=== PATIENT | female | born 1960 | race Caucasian/White ===

== ENCOUNTER 2020-08-31 00:45 | Outpatient (CLI) | payer OTHER, SELFPAY ==
[2020-08-31 18:12] LABS: SARS-CoV-2 RNA PCR Negative
== END 2020-08-31 00:46 | disposition home or self-care (01) ==
LOC: ANHCOVIDDT 00:45
PROVIDERS: PCP Physician Assistant; Visit Provider Internal Medicine Gastroenterology
DX: Z01.812 Encounter for preprocedural laboratory examination (principal); Z20.828 Contact with and (suspected) exposure to other viral communicable diseases
CPT/HCPCS: 87635; C9803; U0003

== ENCOUNTER 2020-09-02 02:23 | Day surgery (SDC) | payer OTHER, SELFPAY ==
[2020-08-27 11:05] VITALS: BMI 31.8
--- NOTE | 2020-09-02 08:17 | P.PNAN_ITS ---
Anes - Initial Pre Proc Eval Procedure: Operation Date: 09/02/20 09:00 Proposed Procedures p Esophagogastroduodenoscopy - Navi Sawyer MD Date/Time: 09/02/20 08:17 Surgeon: Navi Sawyer MD Pre Op Diagnosis: Abnormal CT Scan Patient Data Age: 59 Gender: F Height: 1.61 m Weight: 83 kg Allergies Allergy/AdvReac Type Severity Reaction Status Date / Time No Known Allergies Allergy Verified 09/02/20 08:28 Home Medications Medication Instructions Recorded Confirmed Type hydrochlorothiazide 25 mg tablet 25 mg PO DAILY 02/05/20 08/27/20 History quinapril 40 mg tablet 40 mg PO DAILY 02/05/20 08/27/20 History rrzkiki-qrxwhptts-ajob 1 tab-cap PO DAILY 08/27/20 08/27/20 History ergocalciferol (vitamin D2) 50,000 unit PO WEEKLY 08/27/20 08/27/20 History [Vitamin D2] montelukast 10 mg PO DAILY 08/27/20 08/27/20 History rosuvastatin 5 mg PO DAILY 08/27/20 08/27/20 History Patient hx anesthesia problems: none Family hx anesthesia problems: none [facility] Past Medical History Medical History (Updated 09/01/20 @ 14:42 by Ethan Quiroz DO) Anxiety Borderline diabetes Diabetes 6mo A1C=6.5 Factor V Leiden Hyperlipidemia Hypertension Osteoarthritis Surgical History Surgical History History of section 05-04-1984 01-05-1990 Social History Social History Smoking status: Never smoker Alcohol intake: current Drinks per week: 1 Alcohol use details: WINE/BEER Substance use: never Substance use type: does not use Additional living arrangements comments: Additional occupation/education comments: Self Employed Spiritual care concerns: No Anes - Eval Final PreProcedure Day of Procedure 09/02/20 08:17 Patient weight: obese Heart: regular rate and rhythm Lungs: clear to auscultation and normal air movement Airway: Mallampati scale class II Neurological: alert and oriented Last oral intake: >/= 8 hours ASA classification: III Emergent: no Anesthetic plan: proceed Anesthesia type and monitoring: general GIVS and standard monitoring Informed Consent: The patient's anesthetic plan and its attendant risks and benefits were discussed with the patient/family/POA. Questions were solicited and answers provided to the satisfaction of the patient/family/POA.
[2020-09-02 08:29] VITALS: BP 171/64; PULSE 79; RESP 16; TEMP 36.5; O2SAT 100; BMI 32.2
--- NOTE | 2020-09-02 08:49 | PM.HPGS ---
History of Present Illness History of Present Illness Consent: Risks, benefits, and alternatives have been discussed and questions answered. Patient agrees to proceed with procedure. Chief complaint: Abnormal CT Scan Narrative: Trisha Deng is a 59 year old female with epigastric pain. A recent CT scan showed thickening of the 3rd portion of the duodenum. She has had no weight loss or vomiting. She does use Aleve for osteoarthritis PMFSH Past Medical History Medical History Anxiety Borderline diabetes Diabetes 6mo A1C=6.5 Factor V Leiden Hyperlipidemia Hypertension Osteoarthritis Surgical History Surgical History History of section 05-04-1984 01-05-1990 Family History Family History Mother Diabetes mellitus Family history of hypercholesterolemia Hypertension Father Family history of hypercholesterolemia Hypertension Family history of pancreatic cancer Heart disease Grandparent Family history of malignant neoplasm of uterus Sibling Family history of malignant neoplasm of breast in first degree relative Social History Social History Smoking status: Never smoker Alcohol intake: current Drinks per week: 1 Alcohol use details: WINE/BEER Substance use: never Substance use type: does not use Additional living arrangements comments: Additional occupation/education comments: Self Employed Spiritual care concerns: No Meds Home Medications and Allergies Home Medications Medication Instructions Recorded Confirmed Type hydrochlorothiazide 25 mg tablet 25 mg PO DAILY 02/05/20 08/27/20 History quinapril 40 mg tablet 40 mg PO DAILY 02/05/20 08/27/20 History dwlsdnv-ypcwgggpa-vasn 1 tab-cap PO DAILY 08/27/20 08/27/20 History ergocalciferol (vitamin D2) 50,000 unit PO WEEKLY 08/27/20 08/27/20 History [Vitamin D2] montelukast 10 mg PO DAILY 08/27/20 08/27/20 History rosuvastatin 5 mg PO DAILY 08/27/20 08/27/20 History Allergies Allergy/AdvReac Type Severity Reaction Status Date / Time No Known Allergies Allergy Verified 09/02/20 08:28 Vital Signs Vital Signs - 24 hr 09/02/20 08:29 Temperature 36.5 C Pulse Rate 79 Respiratory Rate 16 Blood Pressure 171/64 H Pulse Oximetry 100 Exam Const: General: alert Orientation/consciousness: patient oriented x3 Resp: Auscultation: clear to auscultation bilaterally Cardio: Rhythm: regular rhythm GI: GI Palp: Yes Soft to palpation and No Tenderness to palpation present (GI) Neuro: General: patient oriented x3 Assessment and Plan Assessment and plan (1) Epigastric pain: Code(s): R10.13 - Epigastric pain Status: Acute Assessment and Plan: EGD with possible biopsy or dilatation or cautery.
[2020-09-02] MEDS: LACTATED RINGERS 1,000 ML 150 ML IV CONT (09:01)
[2020-09-02] MEDS: BENZOCAINE (*SP) 60 ML SPRAY CAN (HURRICAINE) 1 SPRAY MUCOUS MEM (09:17)
[2020-09-02 09:30] VITALS: BP 101/62; PULSE 64; RESP 20; O2SAT 97
[2020-09-02 09:40] VITALS: BP 107/54; PULSE 71; RESP 20; O2SAT 99
[2020-09-02 09:50] VITALS: BP 108/80; PULSE 61; RESP 13; O2SAT 100
== END 2020-09-02 10:08 | disposition home or self-care (01) ==
PROVIDERS: PCP Physician Assistant; Visit Provider Internal Medicine Gastroenterology
PROC: 0DJ08ZZ Inspection of Upper Intestinal Tract, Via Natural or Artificial Opening Endoscopic (ICD-10-PCS; CPT 43235; principal; 2020-09-02 09:00)
DX: K21.9 Gastro-esophageal reflux disease without esophagitis (principal); F41.9 Anxiety disorder, unspecified; D68.51 Activated protein C resistance; E78.5 Hyperlipidemia, unspecified; R73.03 Prediabetes; I10 Essential (primary) hypertension; E66.9 Obesity, unspecified; Z68.32 Body mass index [BMI] 32.0-32.9, adult
CPT/HCPCS: 43239; 87081; J2704; J7120

== ENCOUNTER → 2020-11-12 13:16 | Outpatient (CLI) | payer OTHER, SELFPAY ==
--- NOTE | ~2020-11-12 | MM_ITS ---
EXAMINATION: MM screening [facility] BI w leeann HISTORY: Screening mammogram TECHNIQUE: Craniocaudal and mediolateral oblique 3-D tomosynthesis images were obtained and synthetic 2-D images were generated. CAD analysis was submitted and interpreted. COMPARISON: 03/02/2019, 01/27/2018, 12/20/2016 BREAST PARENCHYMAL COMPOSITION: The breasts are almost entirely fatty. FINDINGS: There is no evidence of suspicious mass, calcification, or architectural distortion to sugg est malignancy in either breast. There has been no suspicious interval change. IMPRESSION: 1. No mammographic evidence of malignancy. 2. Recommend routine screening mammography in one year. BI-RADS Category 1: Negative Reviewed, dictated and finalized at location A. T VENDOR
--- NOTE | ~2020-11-12 | DEXA_ITS ---
Bone Density Report Name: Trisha Deng Age: 59 Sex: Female Ethnicity: White Date of : 1960 Indication: postmenopausal; screening for osteoporosis; height loss; Referring Provider: VAIBHAV CALDERON Study: Bone densitometry was performed. Exam Date: November 12, 2020 Accession number: [id number] Bone Density: Region BMD T-score Z-score Classification AP Spine (L1-L4) 1.300 2.3 3.8 Normal Femoral Neck (Left) 0.982 1.2 2.5 Normal Total Hip (Left) 1.238 2.4 3.4 Normal Femoral Neck (Right) 1.009 1.4 2.8 Normal Total Hip (Right) 1.189 2.0 3.0 Normal Total Hip Mean 1.214 2.2 3.2 Normal World Health Organization criteria for BMD impression classify patients as: Normal (T-score at or above -1.0), Osteopenia (T-score between -1.0 and -2.5), or Osteoporosis (T-score at or below -2.5). 10-year Fracture Risk: FRAX not reported because: All T-scores for Spine Total, Hip Total, Femoral Neck at or above -1.0 Previous Exams: Region Exam Age BMD T-score BMD Change BMD Change Date g/cm2 vs Baseline vs Previous AP Spine(L1-L4) 11/12/2020 59 1.300 2.3 -0.056* -0.038* 01/27/2018 57 1.337 2.6 -0.018 0.045* 09/01/2015 54 1.292 2.2 -0.063* -0.063* 02/09/2013 52 1.355 2.8 Total Hip(Left) 11/12/2020 59 1.238 2.4 -0.097* -0.035* 01/27/2018 57 1.273 2.7 -0.062* -0.037* 09/01/2015 54 1.310 3.0 -0.024 -0.024 02/09/2013 52 1.335 3.2 Total Hip(Right) 11/12/2020 59 1.189 2.0 -0.101* -0.087* 01/27/2018 57 1.276 2.7 -0.014 -0.008 09/01/2015 54 1.283 2.8 -0.006 -0.006 02/09/2013 52 1.290 2.8 *Denotes significance at 95% confidence level, LSC for AP Spine = 0.022 g/cm2, LSC for Total Hip = 0.027 g/cm2 Clinical Information Provided by Patient: Has used the following medications: Vitamin D, MTV that includes calcium Patient maximum height was 64 Menopause Age: 49 No regular weight bearing exercise Drinks caffeinated beverages Onset of menses at age 11 Number of children 2 Impression: The patient has normal bone mass. The BMD for the AP Spine(L1-L4) decreased, changing by -0.038 since the last DXA exam. The BMD for the Total Hip(Left) decreased, changing by -0.035 since the last DXA exam. The BMD for the Total Hip(Right) decreased, changing by -0
== END ==
PROVIDERS: PCP Physician Assistant; Visit Provider Obstetrics & Gynecology
DX: Z12.31 Encounter for screening mammogram for malignant neoplasm of breast (principal); Z78.0 Asymptomatic menopausal state
CPT/HCPCS: 77063; 77067; 77080

== ENCOUNTER 2021-05-19 07:54 | Outpatient (CLI) | payer OTHER, SELFPAY ==
[2021-05-19 09:44] LABS: Basophils Percent Auto 0.6 % (0.2-1.2); Eosinophils Absolute Auto 0.1 K/mm3 (0-0.3); Eosinophils Percent Auto 2.3 % (0-4.4); Hematocrit 43.9 % (37.0-47.0); Hemoglobin 14.2 g/dL (12.0-15.0); Immature Granulocyte Absolute 0.01 K/mm3 (0.00-0.031); Immature Granulocyte Percent A 0.2 % (0-0.5); Lymphocytes Absolute Auto 1.89 K/mm3 (0.9-3.2); Lymphocytes Percent Auto 36.7 % (18.3-44.2); Mean Corpuscular HGB Conc 32.3 g/dl (32-36); Mean Corpuscular Hemoglobin 29.2 pg (26-34); Mean Corpuscular Volume 90.1 fl (80-100); Monocytes Absolute Auto 0.4 K/mm3 (0.1-0.6); Monocytes Percent Auto 7.6 % (2.6-8.5); Neutrophils Absolute Auto 2.7 K/mm3 (1.3-6.7); Neutrophils Percent Auto 52.6 % (45.5-73.1); Platelet Count Result 349 k/mm3 (150-375); Red Blood Count 4.87 M/mm3 (4.2-5.4); Red Cell Distribution Width 12.8 % (11.5-14.5); White Blood Count 5.2 K/mm3 (4.5-10.0)
[2021-05-19 09:46] LABS: Add Urine Microscopic? NO; Appearance Urine Clear (Clear); Bilirubin Urine Negative (Negative); Blood Urine Negative (Negative); Color Urine Straw (Yellow); Glucose Urine UA Negative (Negative); Ketones Urine Negative (Negative); Leukocyte Esterase Ur Negative LEU/UL (Negative); Nitrate Urine Negative (Negative); Protein Urine Negative (Negative); Specific Grav Ur 1.014 (1.001-1.035); Urobilinogen Urine Negative mg/dL (<2.0)
[2021-05-19 09:51] LABS: Urine Cotinine NEGATIVE
[2021-05-19 09:52] LABS: Albumin Level 4.5 g/dL (3.5-5.1)
[2021-05-19 09:59] LABS: Anion Gap 7 mmol/L (8-16); Blood Urea Nitrogen 16 mg/dL (7-17); Calcium 10.1 mg/dL (8.4-10.2); Carbon Dioxide 32 mmol/L (22-30); Chloride 101 mmol/L (98-107); Estimated Glomerular Filt Rate > 60; Glucose 114 mg/dL (65-105); Potassium 4.4 mmol/L (3.4-5.0); Sodium 140 mmol/L (137-145)
[2021-05-19 10:08] LABS: Hemoglobin A1C 6.4 % (<5.7)
== END 2021-05-19 07:55 | disposition home or self-care (01) ==
LOC: ANHSURGERY 07:58
PROVIDERS: Anesthesiology; PCP Physician Assistant; Visit Provider Orthopaedic Surgery
DX: M17.11 Unilateral primary osteoarthritis, right knee (principal); Z79.899 Other long term (current) drug therapy; Z01.818 Encounter for other preprocedural examination
CPT/HCPCS: 36415; 80048; 80307; 81003; 82040; 83036; 85025; 87081

== ENCOUNTER 2021-06-14 01:01 | Day surgery (SDC) | payer OTHER, SELFPAY ==
[2021-05-19 08:42] VITALS: BMI 33.5
--- NOTE | 2021-06-13 11:23 | WPDANESEPPF ---
Anes - Initial Pre Proc Eval Procedure: Operation Date: 06/14/21 07:30 Proposed Procedures p Right Total Knee Arthroplasty - Jaden Demarco MD Date/Time: 06/13/21 11:23 Surgeon: Jaden Demarco MD Pre Op Diagnosis: Right Knee OA Patient Data Age: 60 Gender: F Height: 1.6 m Weight: 85.9 kg Allergies Allergy/AdvReac Type Severity Reaction Status Date / Time No Known Allergies Allergy Verified 05/19/21 08:33 Home Medications Medication Instructions Recorded Confirmed Type hydrochlorothiazide 25 mg tablet 25 mg PO QAM 02/05/20 06/08/21 History quinapril 40 mg tablet 40 mg PO QAM 02/05/20 06/08/21 History ergocalciferol (vitamin D2) 50,000 unit PO WEEKLY 08/27/20 06/08/21 History [Vitamin D2] montelukast 10 mg PO HS PRN 08/27/20 06/08/21 History metoprolol succinate 50 mg 50 mg PO HS 01/26/21 06/08/21 History tablet,extended release 24 hr acetaminophen [Tylenol Arthritis] 1,300 mg PO Q8H PRN 05/19/21 06/08/21 History cetirizine [Zyrtec] 10 mg PO DAILY PRN 05/19/21 06/08/21 History mv,iron,min-folic acid-biotin 1 cap PO QAM 05/19/21 06/08/21 History [Hair, Skin and Nails-Argan Oil] rivaroxaban 10 mg tablet 10 mg PO DAILY PRN #42 tablet 06/08/21 Rx Patient hx anesthesia problems: none Family hx anesthesia problems: none PMFSH Past Medical History Medical History (Updated 06/13/21 @ 11:23 by Philippe Mar MD) Anxiety BMI 32.0-32.9,adult Borderline diabetes Diabetes 6mo A1C=6.5 Factor V Leiden GERD (gastroesophageal reflux disease) Hyperlipidemia Hypertension Obesity Osteoarthritis Osteoarthritis of right knee Surgical History Surgical History History of section 05-04-1984 01-05-1990 History of esophagogastroduodenoscopy (EGD) Family History Family History Mother Diabetes mellitus Family history of hypercholesterolemia Hypertension Father Family history of hypercholesterolemia Hypertension Family history of pancreatic cancer Heart disease Grandparent Family history of malignant neoplasm of uterus Sibling Family history of malignant neoplasm of breast in first degree relative Social History Social History Smoking status: Never smoker Second hand tobacco smoke exposure: No Alcohol intake: current Drinks per week: 1 Alcohol use details: STATES MAYBE 1 DINK A MONTH Substance use: never Substance use type: does not use Living arrangements: with family Additional living arrangements comments: Additional occupation/education comments: Self Employed Spiritual care concerns: No Anes - Eval Final PreProcedure Day of Procedure 06/13/21 11:23 Patient weight: obese Heart: regular rate and rhythm Lungs: clear to auscultation and normal air movement Airway: Mallampati scale class II Neurological: alert and oriented Last oral intake: >/= 8 hours ASA classification: III Emergent: no Anesthetic plan: proceed Anesthesia type and monitoring: general LMA Informed Consent: The patient's anesthetic plan and its attendant risks and benefits were discussed with the patient/family/POA. Questions were solicited and answers provided to the satisfaction of the patient/family/POA.
[2021-06-14] VITALS (16 sets, daily range): BP systolic 107–175; BP diastolic 57–86; PULSE 72–100; RESP 11–20; TEMP 36.3–37.3; O2SAT 94–100
--- NOTE | ~2021-06-14 | XR_ITS ---
EXAMINATION: XR surgery orthopedic DATE: 06/14/2021 09:30 INDICATION: Intraoperative evaluation during right total knee arthroplasty. TECHNIQUE: AP view of the right knee was obtained. COMPARISON: 06/08/2021 FINDINGS: Femoral component of a right total knee arthroplasty is in expected position. There is a trial tibial component also in expected position. Alignment of the knee appears near-anatomic. No fractures ident ified. IMPRESSION: Near-anatomic alignment with femoral component and trial tibial component during right total knee art hroplasty. Reviewed, dictated and finalized at location A. IMPRESSION: Near-anatomic alignment with femoral component and trial tibial component flex whitehead right total knee arthroplasty.
--- NOTE | ~2021-06-14 | XR_ITS ---
XR knee RT 2V DATE: 06/14/2021 11:15 INDICATION: Right total knee replacement TECHNIQUE: Postoperative AP and lateral views COMPARISON: 10/09/2021 right knee FINDINGS: Status post right total knee arthroplasty with patellar resurfacing. There is expected postoperative intra-articular gas in subcutaneous emphysema. No fracture or dislocation or joint effusion. No periosteal reaction or bone destruction. IMPRESSION: Status post right total knee arthroplasty Reviewed, dictated and finalized at location A.
[2021-06-14] MEDS: ACETAMINOPHEN 500 MG TABLET 1000 MG PO ×3 (06:45→22:57)
[2021-06-14] MEDS: TRANEXAMIC ACID 1,000MG/ISO100 1,000 MG/100 ML BAG 200 MG IVPB (06:45)
[2021-06-14] MEDS: LACTATED RINGERS 1,000 ML 30 ML IV CONT (07:00)
[2021-06-14 07:07] LABS: Glucose Point of Care 123 mg/dl (65-105)
--- NOTE | 2021-06-14 07:13 | WPDHPUPDATE1 ---
History and Physical Update Update Date/Time: 06/14/21 07:13 History and Physical has been reviewed, including an updated exam of the patient. There are NO changes in the patient's condition. Risks, benefits, and alternatives have been discussed and questions answered. Patient agrees to proceed with procedure.
--- NOTE | 2021-06-14 07:30 | WPDANESPNB ---
Anes - Peripheral Nerve Block Date/Time: 06/14/21 07:30 I have discussed with the patient/family/POA the placement of a peripheral nerve block for post-operative pain management, including associated risks, benefits, complications, and side effects. Alternative methods of post-operative analgesia were detailed. Questions were solicited and answers provided to the satisfaction of the patient/family/POA. Time-Out: A pre-procedural Time-Out was completed immediately before starting the procedure and confirmed: Patient Identification, Site, Procedure, Patient Position and the Availability of Requisite Equipment. Clinical Indications: Acute post-operative pain management requested by the operative surgeon. Nerve Block Insertion Note Anes-nerve block: adductor canal Patient position: supine Skin prep: chlorhexidine Needle: 22 gauge, stimulating, insulated echogenic needle. Needle length: 80 mm Technique: ultrasound Technique comment: in plane Injectate: bupivacaine 0.25% with epi 5 mcg/ml (30cc) Observations: tolerated well Complications: none Procedure start time:: 730 Procedure end time:: 740
[2021-06-14] MEDS: ceFAZolin 2 GM/D5W 50 ML 2 GM/50 ML BAG IVPB (07:45)
[2021-06-14] MEDS: BUPIVACAINE/EPINEPHRINE 0.25% 10 ML VIAL 60 ML INFILTRATE (08:50)
[2021-06-14] MEDS: ceFAZolin SODIUM 1 GM VIAL IV PUSH (10:03)
--- NOTE | 2021-06-14 10:52 | W.PM.PROC2 ---
Procedure Note - Detailed Date of Procedure 06/14/21 Pre-op Diagnosis Right Knee OA Post-op Diagnosis same Procedure Performed right total knee replacement Surgeon Jaden Demarco MD Access Developer Jennifer Terrell Anesthesia general and regional Indications see H&P Description of Procedure The patient was identified and proper site identified. In the preop holding area the anesthesia team performed a right sub sartorial block after which the patient was taken to the operating room and transferred to the OR table positioning supine taking care to pad the torso and extremities. After general anesthetic induction and intubation a nonsterile tourniquet was placed high on the right thigh. The right lower extremity was prepped and draped in the usual sterile fashion. The extremity was exsanguinated and with the knee flexed tourniquet was inflated to 300 mmHg remaining up for approximately 64 minutes. An anterior midline incision was made and a modified medial parapatellar approach was used. Infra and suprapatellar fat pads were excised. Patella was resected leaving 15 mm thickness and prepared for the 28 thin round three peg component. Using the intramedullary guide the distal femur was cut in the proper orientation for the size 60 femoral component. Using the extramedullary guide the tibia was cut perpendicular to the long axis protecting collateral ligaments and popliteal structures. It was sized to a 63. Trial reduction was undertaken and the weight-bearing line was noted to passed through the center of the joint. In extension the stability was excellent however in flexion the in the joint was tight medially, loose laterally. The tourniquet was released and remained down for 31 minutes. Intraoperative x-ray was obtained which showed good alignment of the components. The deep posterior portion of the MCL was released from the tibia which balanced the flexion gap. Extension gap was symmetrical but now tight so the distal tibia was recut removing an additional 2 mm off of the femur and then the appropriate blocks used to recut the chamfers . The knee was now balanced in flexion and extension. Proximal tibia was punched and drilled. With the trial components in, the extremity was readmitted exsanguinated and then with the knee flexed tourniquet was reinflated to 300 mmHg remaining up for an additional 14 minutes. Trial components were removed. The bone surfaces were washed with pulsatile lavage and dried. The real components were cemented simultaneously. The knee was held in extension and the patella held clamped until the cement had cured. Excess cement was removed from the joint. After trialing it was determined that the Sixteen mm insert gave full range of motion from 0-120 degrees degrees of flexion and the patella tracked in the femoral groove with no lift-off. After final lavage the joint the real 16 E poly insert was placed and secured with a locking bar. A Betadine and saline wash was placed into the wound and allowed to sit for approximately 3 minutes and then evacuated. Periarticular tissues were infiltrated with 60 cc of the arthroplasty solution. 1 g of tranexamic acid was left in the wound. The extensor mechanism was repaired with #2 Vicryl suture and 0 looped PDS suture. Subcu was reapproximated with three 0 Monocryl, two 0 strata fix and tissue adhesive for the skin. A sterile dressing was applied. She tolerated the procedure well, was awakened and extubated, transferred to the bed and was taken to recovery area in stable condition. There were no known intraoperative complications. Perioperative antibiotics were administered. Estimated Blood Loss 150 Tourniquet Time 78 ( total minutes) Drains No Packing No Pathology none sent Complications No immediate complications Condition stable
[2021-06-14] MEDS: fentaNYL CITRATE INJ (*CRX) 100 MCG/2 ML VIAL 25 MCG IV PUSH ×3 (11:29→12:02)
[2021-06-14] MEDS: KETOROLAC 15 MG/ML VIAL (*BKC) IV PUSH ×2 (13:05→18:28)
[2021-06-14] MEDS: oxyCODONE HCL (*CRX) 5 MG TAB IR PO ×4 (13:12→21:37)
--- NOTE | 2021-06-14 13:15 | ADMGEN ---
This patient, Trisha Deng, was admitted to 2 Medical Room 242-. Patient/family oriented to hospital policies and general routines including ID bracelet, bed and alarms, visiting hours, pain management, procedures, bathroom and other care routines, personal items, smoking policy, room service/diet, and visiting hours. Information on how to activate the Rapid Response Team has been discussed. Patient/Family are encouraged to report perceived risks to care and to ask questions if they do not understand what they are told or what they should do.
[2021-06-14 13:44] LABS: Glucose Point of Care 203 mg/dl (65-105)
[2021-06-14] MEDS: ONDANSETRON INJ 4 MG/2 ML VIAL IV PUSH (14:03)
[2021-06-14] MEDS: SODIUM CHLORIDE 0.9% IV 1,000 ML 125 ML IV CONT (15:47)
[2021-06-14] MEDS: DOCUSATE SODIUM 100 MG CAPSULE PO (18:28)
[2021-06-14] MEDS: lisinopriL 20 MG TABLET 40 MG PO (18:30)
[2021-06-14] MEDS: METOPROLOL SUCCINATE EXT REL 50 MG TABCR PO (21:37)
[2021-06-14] MEDS: FAMOTIDINE 20 MG TABLET PO (21:37)
[2021-06-15] VITALS: BP 114/54; PULSE 73; RESP 16; TEMP 36.6; O2SAT 100
[2021-06-15] MEDS: KETOROLAC 15 MG/ML VIAL (*BKC) IV PUSH (00:14)
[2021-06-15] MEDS: oxyCODONE HCL (*CRX) 5 MG TAB IR PO ×3 (00:29→09:25)
[2021-06-15 02:24] VITALS: BP 114/54; PULSE 73; RESP 16; TEMP 36.6; O2SAT 100
[2021-06-15] MEDS: ACETAMINOPHEN 500 MG TABLET 1000 MG PO (05:18)
[2021-06-15 06:24] VITALS: BP 108/58; PULSE 58; RESP 16; TEMP 36.6; O2SAT 100
--- NOTE | 2021-06-15 07:39 | PM.DS ---
DS: Admitting Diagnosis Admitting Diagnosis Admitting Diagnosis: osteoarthritis right knee DS: Discharge Diagnosis Discharge Diagnosis (1) History of right knee joint replacement: Code(s): Z96.651 - Presence of right artificial knee joint Status: Resolved Assessment and Plan: Plan discharge home today. Surgery discussed and instructions reviewed. DS: Summary Hospital Course Reason for hospitalization: Observation after outpatient procedure Hospital Course: following the patient's knee surgery, she was admitted to the floor and therapy was instituted. She she has done well and is going to be discharged home on postop day one. Status at Discharge Functional status at discharge: uses cane/walker Overall status at discharge: patient is not back to baseline Time Spent with Patient Time attestation: Total time spent providing and/or coordinating discharge services: Exam Const: General: cooperative, no acute distress and alert Nutritional Appearance: other Orientation/consciousness: patient oriented x3 Limitations: no limitations HENMT: Head: normal to inspection Ears: hearing grossly normal bilaterally Face and sinus: face symmetric Mouth: Yes moist mucous membranes Teeth and gingiva: fair dentition Eyes: Alignment and Position: alignment normal and position normal Sclera: sclerae normal Neck: Neck: normal visual inspection and nontender Chest: Chest palpation & inspection: normal inspection of the chest Resp: Effort & Inspection: normal respiratory effort and able to speak in complete sentences GI: Inspection: other ( Nondistended, nontender) Skin: General skin exam: normal color Rashes: no rashes Neuro: General: patient oriented x3 Cognition (Neuro): normal cognition Speech: normal speech Extrem: General: normal to inspection and other Other: Exam of the right knee shows dry dressing with minimal swelling and no bruising about the knee. Grossly motor and sensory function right lower extremity is intact. Calves negative. Psych: Appearance: grossly normal Mental Status: mental status grossly normal DS: Data Data Completed and Pending Labs on day of discharge: Labs from last 24 hours 06/14/21 06/14/21 11:27 07:05 POC Capillary Glucose 203 H Blood Type O Positive Antibody Screen Negative Discharge Plan Discharge Patient Disposition: Home, Self-Care Discharge Instructions: 3 times daily for 20 minutes each time, reclining in bed with ice packs over the incision and a pillow underneath the calf of the affected leg, not under the knee. Your wound is glued so it is okay to get into the shower and get the wound wet in two days. Be sure to read through all the information that came from a my office and the hospital. Most of the answers you will need can be found that material. Call the office with any questions that you cannot find answers to, or concerns you may have. After the Xarelto is completed, start taking one coated 325 mg aspirin daily and do this for four more weeks. Please call [facility] at as soon as possible to verify your follow-up appointment to be seen in 2 weeks. Also, call the office with any orthopedic/surgical related questions prior to follow-up. Be sure to get up and move around several times daily but do not overdo it. Take the arthritis formula Tylenol 650 mg tablet on an 8 hour schedule. A good 8 hour schedule is: 6:00 a.m., 2:00 p.m., 10:00 p.m. you may take the prescribed pain medication along with the Tylenol; it is not to be taken instead of the Tylenol. I would like for you to take the Tylenol on a schedule for 2-3 weeks. You have a Celebrex prescription that will be taken twice a day for one week. This is in addition to your other pain medication. Patient Instructions: Rivaroxaban (By mouth), Pain Management (DC), Joint Replacement Surgery (DC), Knee Replacement (DC) Discharge Medications: New oxycodone
[2021-06-15] MEDS: FAMOTIDINE 20 MG TABLET PO (08:23)
[2021-06-15] MEDS: ONDANSETRON INJ 4 MG/2 ML VIAL IV PUSH (08:51)
--- NOTE | 2021-06-15 09:15 | WPDANESPN ---
Anes - Prog Note Post-Op Date/Time: 06/15/21 09:15 Cardiovascular status: normal Respiratory status: normal Airway patency: baseline Mental status: baseline Post-Op hydration status: normal Vital Signs: Last Vital Signs Temp 36.6 C 06/15/21 06:24 Pulse 58 L 06/15/21 06:24 Resp 16 06/15/21 06:24 BP 108/58 L 06/15/21 06:24 Pulse Ox 100 06/15/21 06:24 Pain Score (VAS): 2/10 I/O: Intake & Output 06/14/21 06/15/21 06/15/21 23:59 07:59 15:59 Intake Total 790 400 240 Output Total 300 Balance 790 100 240 06/14/21 11:27 POC Capillary Glucose 203 H Post-procedural complaints: nausea (moderate, Zofran prn) Patient Feedback: Patient satisfied with anesthetic care.
[2021-06-15] MEDS: DOCUSATE SODIUM 100 MG CAPSULE PO (09:25)
[2021-06-15] MEDS: hydroCHLOROthiazide 25 MG TABLET PO (09:25)
[2021-06-15] MEDS: THERAPEUTIC MULTIVITAMINS/MINERALS TAB (*BKC) 1 TABLET PO (09:25)
[2021-06-15] MEDS: polyethylene glycoL 3350 17 GM POWD.PACK PO (09:26)
[2021-06-15] MEDS: RIVAROXABAN 10 MG TABLET PO (09:26)
[2021-06-15] MEDS: lisinopriL 20 MG TABLET 40 MG PO (09:29)
[2021-06-15 09:33] VITALS: BP 117/60
== END 2021-06-15 11:09 | disposition home or self-care (01) ==
LOC: ANHSURGERY 06:17 → ANH2MED 12:52
PROVIDERS: PCP Physician Assistant; Visit Provider Orthopaedic Surgery
PROC: (CPT 27447; principal; 2021-06-14 07:30)
DX: M17.11 Unilateral primary osteoarthritis, right knee (principal); G89.18 Other acute postprocedural pain; I10 Essential (primary) hypertension; E11.9 Type 2 diabetes mellitus without complications; E66.9 Obesity, unspecified; Z68.33 Body mass index [BMI] 33.0-33.9, adult; K21.9 Gastro-esophageal reflux disease without esophagitis; F41.9 Anxiety disorder, unspecified; D68.51 Activated protein C resistance; Z79.899 Other long term (current) drug therapy
CPT/HCPCS: 27447; 64447; 36415; 73560; 80048; 80307; 81003; 82040; 82948; 83036; 85025; 86850; 86900; 86901; 87081; 97110; 97116; 97161; 97165; 97530; 97535; A9270; C1713; C1776; J0131; J0690; J1170; J1885; J2250; J2405; J2704; J3010; J7030; J7120

== ENCOUNTER → 2021-11-15 13:35 | Outpatient (CLI) | payer OTHER, SELFPAY ==
--- NOTE | ~2021-11-15 | MM_ITS ---
EXAMINATION: MM screening [facility] BI w leeann HISTORY: Screening mammogram, family history of breast cancer in her sister. TECHNIQUE: Craniocaudal and mediolateral oblique 3-D tomosynthesis images were obtained and synthetic 2-D images were generated. CAD analysis was submitted and interpreted. COMPARISON: 11/12/2020, 03/12/2019, 01/27/2018 BREAST PARENCHYMAL COMPOSITION: The breasts are almost entirely fatty. FINDINGS: There is no evidence of suspicious mass, calcification, or architectural distortion to sugg est malignancy in either breast. There has been no suspicious interval change. IMPRESSION: 1. No mammographic evidence of malignancy. 2. Recommend routine screening mammography in one year. BI-RADS Category 1: Negative Reviewed, dictated and finalized at location A. H HOLDER INSPECTOR
== END ==
PROVIDERS: PCP Physician Assistant; Visit Provider Obstetrics & Gynecology
DX: Z12.31 Encounter for screening mammogram for malignant neoplasm of breast (principal)
CPT/HCPCS: 77063; 77067

== ENCOUNTER 2022-12-22 13:21 | Outpatient (CLI) | payer OTHER, SELFPAY ==
--- NOTE | ~2022-12-22 | US_ITS ---
EXAMINATION: US venous doppler LE DATE: 12/22/2022 13:45 INDICATION: Right lower limb pain. TECHNIQUE: Grayscale ultrasound images without and with compression and Doppler ultrasound images of the right lower extremity veins were obtained. COMPARISON: None. FINDINGS: The visualized portions of right common femoral vein, profunda (deep) femoral vein, femoral vein, pop liteal vein, peroneal trunk, posterior tibial veins, peroneal veins, gastrocnemius vein and greater s aphenous vein outflow are patent. IMPRESSION: 1. No deep venous thrombosis in the right lower limb. Reviewed, dictated and finalized at location L. RAM REVIEW DIRECTOR
== END 2022-12-22 13:22 ==
PROVIDERS: PCP Physician Assistant; Visit Provider Orthopaedic Surgery
DX: M79.604 Pain in right leg (principal)
CPT/HCPCS: 93971

== ENCOUNTER → 2023-02-04 10:35 | Outpatient (CLI) | payer OTHER, SELFPAY ==
--- NOTE | ~2023-02-04 | MM_ITS ---
EXAMINATION: MM screening marlyn BI w leeann HISTORY: Screening mammogram TECHNIQUE: Craniocaudal and mediolateral oblique 3-D tomosynthesis images were obtained and synthetic 2-D images were generated. CAD analysis was submitted and interpreted. COMPARISON: 11/15/2021, 11/12/2020, 03/12/2019 bilateral screening mammogram examinations BREAST PARENCHYMAL COMPOSITION: The breasts are almost entirely fatty. FINDINGS: There is no evidence of suspicious mass, calcification, or architectural distortion to sugg est malignancy in either breast. There has been no suspicious interval change. IMPRESSION: 1. No mammographic evidence of malignancy. 2. Recommend routine screening mammography in one year. BI-RADS Category 1: Negative Reviewed, dictated and finalized at location A.
== END ==
PROVIDERS: PCP Physician Assistant; Visit Provider Obstetrics & Gynecology
DX: Z12.31 Encounter for screening mammogram for malignant neoplasm of breast (principal)
CPT/HCPCS: 77063; 77067

== ENCOUNTER 2023-02-08 08:57 | Outpatient (RCR) | payer OTHER, SELFPAY | END 2023-04-25 08:57 | disposition home or self-care (01) | LOC: ANHDMC 08:57 | PROVIDERS: PCP Physician Assistant; Visit Provider Physician Assistant | DX: E11.9 Type 2 diabetes mellitus without complications (principal); Z71.89 Other specified counseling | CPT/HCPCS: G0108 ==

== ENCOUNTER 2023-03-27 09:36 | Emergency (ER) | payer OTHER, SELFPAY ==
--- NOTE | ~2023-03-27 | CT_ITS ---
EXAMINATION: CT abdomen pelvis w con DATE: 03/27/2023 10:48 INDICATION: Lower abdominal and left lower back pain. Bright red blood per rectum. TECHNIQUE: Computed tomography (CT) of the abdomen and pelvis was performed without intravenous contr ast. The dose-length product was 1030.61 mGy-cm. COMPARISON: None FINDINGS: Small calcified nodule in the right lower lobe consistent with old granulomatous disease. Heart size normal. No pericardial or pleural effusion. Focal hepatic steatosis at the ligamentum teres. Gallblad sukhi, spleen, pancreas, bilateral adrenal glands and kidneys are normal. Small bowel and appendix are normal. There is some wall thickening along the descending and sigmoid colon consistent with colitis. There are few diverticula along the sigmoid colon without adjacent inflammatory stranding to suggest diverticulitis. There is some increased density associated with a couple of the sigmoid diverticula as well as a 13 x 8 mm intraluminal nodular region of increased density at the distalmost sigmoid col on. Bladder, anteverted uterus and bilateral adnexa are unremarkable. No free intraperitoneal gas or fluid. No pathologically enlarged abdominal or pelvic lymphadenopathy. Mild to moderate lumbar and lo wer thoracic spondylosis. There is also mild to moderate osteoarthritis of the bilateral hip and sacr oiliac joints.. IMPRESSION: 1. Diffuse mild thickening in the descending and sigmoid colon consistent with colitis which could be infectious, inflammatory or less likely ischemic in etiology. 2. Mild sigmoid diverticulosis without attenuation material at a couple diverticula in additional mor e distal intraluminal nodular density. Differential would include high attenuation material within th e fecal stream, small amount of blood or contrast extravasation given the history of primary blood pe r rectum, or enhancing polyps particularly for the more distal lesion. Would recommend further evalua tion with follow-up colonoscopy if this has not been recently performed. Reviewed, dictated and finalized at location B. IMPRESSION: 1. Diffuse mild thickening in the descending and sigmoid colon consistent with colitis which could be infectious, inflammatory or less likely ischemic in etio logy. 2. Mild sigmoid diverticulosis without attenuation material at a couple diverti cula in additional more distal intraluminal nodular density. Differential would include high attenuation material within the fecal stream, small amount of blo od or contrast extravasation given the history of primary blood per rectum, or enhancing polyps particularly for the more distal lesion. Would recommend furth er evaluation with follow-up colonoscopy if this has not been recently performtommy mena
[2023-03-27 09:38] VITALS: BP 135/83; PULSE 87; RESP 14; TEMP 36.4; O2SAT 100
--- NOTE | 2023-03-27 09:49 | ED.ABDPAIN ---
HPI - Abdominal Pain General Chief Complaint: Abdominal Pain Stated Complaint: abdominal and back pain Time Seen by Provider: 03/27/23 09:42 Source: patient Mode of arrival: ambulatory Limitations: no limitations History of Present Illness HPI narrative: Patient is a 62 y/o female who presents to the ED with c/o abdominal pain. Patient reports she developed mild pain throughout her abdomen last night after eating fried chicken. Pain became worse around 1:30 AM and has kept patient up all night. She states the pain was diffuse across her abdomen, but also seemed to be in her left lower back. She described the pain as gas pains. She felt the need to have a bowel movement and states she had to strain. She was eventually able to pass a small amount of stool. She then developed diarrhea afterwards. She noticed a small amount of bright red bleeding after numerous bowel movements. She denies any pain with bowel movements. Denies any known history of hemorrhoids. She also reported having nausea, but denied vomiting. Pain is improved currently. She mentions she started Ozempic 8 weeks ago and has had similar gas pains since being on the medication. She does have history of diabetes. Patient denies any recent fevers, urinary symptoms. Related Data Home Medications Medication Instructions Recorded Confirmed hydrochlorothiazide 25 mg tablet 25 mg PO QAM 02/05/20 12/22/22 ergocalciferol (vitamin D2) 1,250 50,000 unit PO WEEKLY 08/27/20 12/22/22 mcg (50,000 unit) capsule (Vitamin D2) montelukast 10 mg tablet 10 mg PO HS PRN Congestion 08/27/20 12/22/22 metoprolol succinate 50 mg 25 mg PO HS 01/26/21 12/22/22 tablet,extended release 24 hr cetirizine 10 mg capsule (Zyrtec) 10 mg PO DAILY PRN Congestion 05/19/21 12/22/22 lisinopril 40 mg tablet 40 mg PO DAILY 12/22/22 12/22/22 Allergies Allergy/AdvReac Type Severity Reaction Status Date / Time No Known Allergies Allergy Verified 12/22/22 09:30 Review of Systems Review of Systems: CONSTITUTIONAL: Denies fever, chills, or sweats. CARDIOVASCULAR: Denies chest pain. RESPIRATORY: Denies dyspnea. GASTROINTESTINAL: See HPI. GENITOURINARY: Denies dysuria or hematuria. SKIN: Denies rash or itching. MUSCULOSKELETAL: See HPI. NEUROLOGIC: Denies headache, numbness, or weakness. All systems reviewed & are unremarkable except as noted in HPI and below PMFSH Past Medical History Medical History Anxiety BMI 32.0-32.9,adult Diabetes 6mo A1C=6.5 Factor V Leiden GERD (gastroesophageal reflux disease) Hyperlipidemia Hypertension Obesity Osteoarthritis Right leg pain Surgical History Surgical History History of section 05-04-1984 01-05-1990 History of esophagogastroduodenoscopy (EGD) History of right knee joint replacement June 14, 2021 Family History Family History Mother Diabetes mellitus Family history of hypercholesterolemia Hypertension Father Family history of hypercholesterolemia Hypertension Family history of pancreatic cancer Heart disease Grandparent Family history of malignant neoplasm of uterus Sibling Family history of malignant neoplasm of breast in first degree relative Social History Social History Smoking status: Never smoker Second hand tobacco smoke exposure: No Alcohol intake: never Drinks per week: 1 Alcohol use details: STATES MAYBE 1 DINK A MONTH Substance use: never Substance use type: does not use Living arrangements: with family Additional living arrangements comments: Occupation/Education: occupation Additional occupation/education comments: Self Employed Spiritual care concerns: No Exam Narrative: GENERAL: Well appearing, obese with BMI of
[2023-03-27 09:59] VITALS: BP 138/83; PULSE 79; RESP 18; O2SAT 100
[2023-03-27 10:07] LABS: Basophils Percent Auto 0.3 % (0.2-1.2); Eosinophils Percent Auto 0.4 % (0-4.4); Hematocrit 44.4 % (37.0-47.0); Hemoglobin 14.5 g/dL (12.0-15.0); Immature Granulocyte Absolute 0.04 K/mm3 (0.00-0.031); Immature Granulocyte Percent A 0.4 % (0-0.5); Lymphocytes Percent Auto 12.2 % (18.3-44.2); Mean Corpuscular HGB Conc 32.7 g/dl (32-36); Mean Corpuscular Hemoglobin 28.9 pg (26-34); Mean Corpuscular Volume 88.4 fl (80-100); Mean Platelet Volume 8.9 fl (7.4-10.4); Monocytes Absolute Auto 0.5 K/mm3 (0.1-0.6); Monocytes Percent Auto 4.9 % (2.6-8.5); Neutrophils Absolute Auto 8.7 K/mm3 (1.3-6.7); Neutrophils Percent Auto 81.8 % (45.5-73.1); Platelet Count Result 382 k/mm3 (150-375); Red Blood Count 5.02 M/mm3 (4.2-5.4); Red Cell Distribution Width 13.3 % (11.5-14.5); White Blood Count 10.7 K/mm3 (4.5-10.0)
[2023-03-27 10:25] LABS: Alanine Aminotransferase 30 U/L (6-35); Albumin Level 4.9 g/dL (3.5-5.1); Alkaline Phosphatase 76 U/L (38-126); Anion Gap 9 mmol/L (8-16); Aspartate Amino Transferase 28 U/L (14-36); Bilirubin,Total 0.6 mg/dL (0.2-1.3); Blood Urea Nitrogen 23 mg/dL (7-17); Calcium 10.1 mg/dL (8.4-10.2); Carbon Dioxide 31 mmol/L (22-30); Chloride 97 mmol/L (98-107); Estimated CRCL calculation 58 ml/min; Estimated Glomerular Filt Rate > 60; Glucose 137 mg/dL (65-110); Lipase 90 U/L (23-300); Potassium 3.7 mmol/L (3.4-5.0); Sodium 137 mmol/L (137-145)
[2023-03-27 10:48] LABS: Appearance Urine Clear (Clear); Bacteria Urine None Seen /hpf; Bilirubin Urine Negative (Negative); Blood Urine Negative (Negative); Color Urine Yellow (Yellow); Glucose Urine UA Negative (Negative); Ketones Urine Negative (Negative); Leukocyte Esterase Ur 2+ LEU/UL (Negative); Need Manual Microscopic Reviewed; Nitrate Urine Negative (Negative); Protein Urine Negative (Negative); RBC Urine 0-2 /hpf (0-2); Specific Grav Ur 1.015 (1.001-1.035); Squamous Epithelial Cell Urine Few /hpf (Few); Urobilinogen Urine 0.2 mg/dL (<2.0); pH Urine 5.5 (5.0-9.0)
[2023-03-27 10:52] LABS: Add Urine Microscopic? YES
[2023-03-27] MEDS: SODIUM CHLORIDE 0.9% IV 1,000 ML 999 ML IV CONT (11:06)
[2023-03-27 11:27] LABS: Lactic Acid Reflex 1.2 mmol/L (0.7-2.0)
[2023-03-27 11:53] VITALS: BP 124/67; PULSE 64; RESP 14; O2SAT 100
[2023-03-27 13:06] VITALS: BP 125/70; PULSE 74; RESP 16; O2SAT 99
== END 2023-03-27 13:13 | disposition home or self-care (01) ==
PROVIDERS: Emergency Provider Physician Assistant; PCP Physician Assistant
DX: K52.9 Noninfective gastroenteritis and colitis, unspecified (principal); K57.30 Diverticulosis of large intestine without perforation or abscess without bleeding; N30.00 Acute cystitis without hematuria; K62.5 Hemorrhage of anus and rectum; E11.9 Type 2 diabetes mellitus without complications; E78.5 Hyperlipidemia, unspecified; I10 Essential (primary) hypertension; D68.51 Activated protein C resistance; K21.9 Gastro-esophageal reflux disease without esophagitis; M19.90 Unspecified osteoarthritis, unspecified site; E66.9 Obesity, unspecified; Z68.32 Body mass index [BMI] 32.0-32.9, adult; Z96.651 Presence of right artificial knee joint; Z79.85 Long-term (current) use of injectable non-insulin antidiabetic drugs
CPT/HCPCS: 36415; 74177; 80053; 81001; 83605; 83690; 85025; 87086; 96360; 96361; 99284; J7030; Q9967

== ENCOUNTER 2023-04-21 03:17 | Day surgery (SDC) | payer OTHER, SELFPAY ==
[2023-04-06 11:43] VITALS: BMI 32.4
[2023-04-21 12:54] VITALS: BP 145/69; PULSE 81; RESP 19; TEMP 36.6; O2SAT 100
[2023-04-21 13:08] LABS: Glucose Point of Care 88 mg/dl (65-105)
[2023-04-21] MEDS: LACTATED RINGERS 1,000 ML 150 ML IV CONT (13:08)
--- NOTE | 2023-04-21 13:23 | WPDANESEPPF ---
Anes - Initial Pre Proc Eval Procedure: Operation Date: 04/21/23 14:00 Proposed Procedures p Colonoscopy - Navi Sawyer MD Date/Time: 04/21/23 13:23 Surgeon: Navi Sawyer MD Pre Op Diagnosis: abnor.findings on imaging,hemorrhage of anus/rectu Patient Data Age: 62 Gender: F Height: 1.6 m Weight: 80.9 kg Last Vital Signs Temp 97.8 F 04/21/23 12:54 Pulse 81 04/21/23 12:54 Resp 19 04/21/23 12:54 BP 145/69 H 04/21/23 12:54 Pulse Ox 100 04/21/23 12:54 O2 Del Method Room Air 04/21/23 12:54 Allergies Allergy/AdvReac Type Severity Reaction Status Date / Time No Known Allergies Allergy Verified 04/21/23 12:53 Home Medications Medication Instructions Recorded Confirmed Type hydrochlorothiazide 25 mg tablet 25 mg PO QAM 02/05/20 04/06/23 History ergocalciferol (vitamin D2) 1,250 50,000 unit PO WEEKLY 08/27/20 04/06/23 History mcg (50,000 unit) capsule (Vitamin D2) montelukast 10 mg tablet 10 mg PO HS PRN Congestion 08/27/20 04/06/23 History metoprolol succinate 50 mg 25 mg PO HS 01/26/21 04/06/23 History tablet,extended release 24 hr cetirizine 10 mg capsule (Zyrtec) 10 mg PO DAILY PRN Congestion 05/19/21 04/06/23 History lisinopril 40 mg tablet 40 mg PO DAILY 12/22/22 04/06/23 History semaglutide 0.25 mg or 0.5 mg (2 0.25 mg subcut WEEKLY 04/06/23 04/06/23 History mg/1.5 mL) subcutaneous pen injector (Ozempic) Laboratory Tests 04/21/23 13:05 POC Capillary Glucose 88 mg/dl (65-105) Patient hx anesthesia problems: none Family hx anesthesia problems: none Results Review: All pre-operative results and documents have been reviewed as part of the pre-operative evaluation. [facility] Past Medical History Medical History Anxiety BMI 32.0-32.9,adult Diabetes 6mo A1C=6.5 Factor V Leiden GERD (gastroesophageal reflux disease) Hyperlipidemia Hypertension Obesity Osteoarthritis Right leg pain Surgical History Surgical History History of section 05-04-1984 01-05-1990 History of esophagogastroduodenoscopy (EGD) History of right knee joint replacement June 14, 2021 Family History Family History Mother Diabetes mellitus Family history of hypercholesterolemia Hypertension Father Family history of hypercholesterolemia Hypertension Family history of pancreatic cancer Heart disease Grandparent Family history of malignant neoplasm of uterus Sibling Family history of malignant neoplasm of breast in first degree relative Social History Social History Smoking status: Never smoker Second hand tobacco smoke exposure: No Alcohol intake: never Drinks per week: 1 Alcohol use details: STATES MAYBE 1 DINK A MONTH Substance use: never Substance use type: does not use Living arrangements: with family Additional living arrangements comments: Occupation/Education: occupation Additional occupation/education comments: Self Employed Spiritual care concerns: No Anes - Eval Final PreProcedure Day of Procedure 04/21/23 13:23 Patient weight: obese Heart: regular rate and rhythm Lungs: clear to auscultation Airway: Mallampati scale class II Neurological: alert and oriented Last oral intake: >/= 8 hours ASA classification: III Emergent: no Anesthetic plan: proceed Anesthesia type and monitoring: general GIVS and standard monitoring Results Review: All pre-operative results and documents have been reviewed as part of the pre-operative evaluation. Informed Consent: The patient's anesthetic plan and its attendant risks and benefits were discussed with the patient/family/POA. Questions were solicited and answers provided to the satisfaction of the patient/family/POA.
--- NOTE | 2023-04-21 13:39 | PM.HPGS ---
History of Present Illness History of Present Illness Consent: Risks, benefits, and alternatives have been discussed and questions answered. Patient agrees to proceed with procedure. Chief complaint: abnor.findings on imaging,hemorrhage of anus/rectu Narrative: Trisha Deng is a 62 year old female who ?recently presented to the emergency room with abdominal pain.? She also had rectal bleeding.? After having what felt like a difficult bowel movement she had diarrhea.? In the emergency room she was evaluated with CT scan that showed thickening of the descending and sigmoid colon consistent with colitis.? She also had leukocytosis.? She was sent home on Cipro and Flagyl.? She felt better in about 2 days.? Now she is having normal bowel movements.? Review of Systems Review of Systems: All systems reviewed & are unremarkable except as noted in HPI and below PMFSH Past Medical History Medical History Anxiety BMI 32.0-32.9,adult Diabetes 6mo A1C=6.5 Factor V Leiden GERD (gastroesophageal reflux disease) Hyperlipidemia Hypertension Obesity Osteoarthritis Right leg pain Surgical History Surgical History History of section 05-04-1984 01-05-1990 History of esophagogastroduodenoscopy (EGD) History of right knee joint replacement June 14, 2021 Family History Family History Mother Diabetes mellitus Family history of hypercholesterolemia Hypertension Father Family history of hypercholesterolemia Hypertension Family history of pancreatic cancer Heart disease Grandparent Family history of malignant neoplasm of uterus Sibling Family history of malignant neoplasm of breast in first degree relative Social History Social History Smoking status: Never smoker Second hand tobacco smoke exposure: No Alcohol intake: never Drinks per week: 1 Alcohol use details: STATES MAYBE 1 DINK A MONTH Substance use: never Substance use type: does not use Living arrangements: with family Additional living arrangements comments: Occupation/Education: occupation Additional occupation/education comments: Self Employed Spiritual care concerns: No Meds Home Medications and Allergies Home Medications Medication Instructions Recorded Confirmed Type hydrochlorothiazide 25 mg tablet 25 mg PO QAM 02/05/20 04/06/23 History ergocalciferol (vitamin D2) 1,250 50,000 unit PO WEEKLY 08/27/20 04/06/23 History mcg (50,000 unit) capsule (Vitamin D2) montelukast 10 mg tablet 10 mg PO HS PRN Congestion 08/27/20 04/06/23 History metoprolol succinate 50 mg 25 mg PO HS 01/26/21 04/06/23 History tablet,extended release 24 hr cetirizine 10 mg capsule (Zyrtec) 10 mg PO DAILY PRN Congestion 05/19/21 04/06/23 History lisinopril 40 mg tablet 40 mg PO DAILY 12/22/22 04/06/23 History semaglutide 0.25 mg or 0.5 mg (2 0.25 mg subcut WEEKLY 04/06/23 04/06/23 History mg/1.5 mL) subcutaneous pen injector ([employer]) Allergies Allergy/AdvReac Type Severity Reaction Status Date / Time No Known Allergies Allergy Verified 04/21/23 12:53 Vital Signs Vital Signs - 24 hr 04/21/23 12:54 Temperature 36.6 C Pulse Rate 81 Respiratory Rate 19 Blood Pressure 145/69 H Pulse Oximetry 100 Oxygen Delivery Room Air Exam Const: General: alert Orientation/consciousness: patient oriented x3 Resp: Auscultation: clear to auscultation bilaterally Cardio: Rhythm: regular rhythm GI: GI Palp: Yes Soft to palpation and No Tenderness to palpation present (GI) Neuro: General: patient oriented x3 Assessment and Plan Assessment and plan (1) Abnormal CT scan, gastrointestinal tract: Code(s): R93.3 - Abnormal findings on diagnostic imaging of other parts of digestive tract
[2023-04-21 14:49] VITALS: BP 113/65; PULSE 74; RESP 22; O2SAT 100
[2023-04-21 14:59] VITALS: BP 120/77; PULSE 73; RESP 19; O2SAT 100
[2023-04-21 15:09] VITALS: BP 136/80; PULSE 72; RESP 18; O2SAT 100
== END 2023-04-21 15:15 | disposition home or self-care (01) ==
PROVIDERS: PCP Physician Assistant; Visit Provider Internal Medicine Gastroenterology
PROC: 0DJD8ZZ Inspection of Lower Intestinal Tract, Via Natural or Artificial Opening Endoscopic (ICD-10-PCS; CPT 45378; principal; 2023-04-21 14:00)
DX: K57.30 Diverticulosis of large intestine without perforation or abscess without bleeding (principal); K64.8 Other hemorrhoids; I10 Essential (primary) hypertension; E78.5 Hyperlipidemia, unspecified; K21.9 Gastro-esophageal reflux disease without esophagitis; D68.51 Activated protein C resistance; E11.9 Type 2 diabetes mellitus without complications; F41.9 Anxiety disorder, unspecified; Z79.899 Other long term (current) drug therapy; E66.9 Obesity, unspecified; Z68.31 Body mass index [BMI] 31.0-31.9, adult
CPT/HCPCS: 45378; 82948; J2001; J2704; J7120

== ENCOUNTER 2024-01-28 09:52 | Emergency (ER) | payer OTHER, SELFPAY ==
[2024-01-28 09:58] VITALS: BP 160/81; PULSE 72; RESP 16; TEMP 36.4; O2SAT 100
--- NOTE | 2024-01-28 10:40 | ED.URI ---
HPI - URI/Sore Throat General Chief Complaint: Upper Respiratory Infection Stated Complaint: Strep Symptoms Time Seen by Provider: 01/28/24 10:31 Source: patient and RN notes reviewed Mode of arrival: ambulatory Limitations: no limitations History of Present Illness HPI Narrative: Patient presents today with a 3 day history of sore throat, body aches, headache, chills and sweats, subjective fever, swollen lymph nodes, nausea. She has taken some home COVID tests that were negative. Currently rates her pain 10 and has been taking Tylenol with mild relief. Related Data Home Medications Medication Instructions Recorded Confirmed hydrochlorothiazide 25 mg tablet 25 mg PO QAM 02/05/20 01/28/24 ergocalciferol (vitamin D2) 1,250 50,000 unit PO WEEKLY 08/27/20 01/28/24 mcg (50,000 unit) capsule (Vitamin D2) metoprolol succinate 50 mg 25 mg PO HS 01/26/21 01/28/24 tablet,extended release 24 hr lisinopril 40 mg tablet 40 mg PO DAILY 12/22/22 01/28/24 semaglutide 0.25 mg or 0.5 mg (2 0.25 mg subcut WEEKLY 04/06/23 01/28/24 mg/1.5 mL) subcutaneous pen injector (Ozempic) Allergies Allergy/AdvReac Type Severity Reaction Status Date / Time No Known Allergies Allergy Verified 01/28/24 10:13 Review of Systems Review of Systems: CONSTITUTIONAL: + body aches, subjective fever, chills and sweats EYES: Denies visual changes, redness, or discharge. ENT: Denies rhinorrhea, congestion,or otalgia.+ sore throat CARDIOVASCULAR: Denies chest pain, palpitations, or edema. RESPIRATORY: Denies cough or dyspnea. GASTROINTESTINAL: Denies abdominal pain, vomiting, or diarrhea.+ nausea GENITOURINARY: Denies dysuria or hematuria. SKIN: Denies rash, itching, or wounds. MUSCULOSKELETAL: Denies back pain, joint pain, or myalgia. NEUROLOGIC: Denies numbness, tingling, or weakness.+ headache PSYCH: Denies depression or anxiety. PMFSH Past Medical History Medical History Anxiety BMI 32.0-32.9,adult Diabetes 6mo A1C=6.5 Factor V Leiden GERD (gastroesophageal reflux disease) Hyperlipidemia Hypertension Obesity Osteoarthritis Right leg pain Surgical History Surgical History History of section 05-04-1984 01-05-1990 History of esophagogastroduodenoscopy (EGD) History of right knee joint replacement June 14, 2021 Family History Family History Mother Diabetes mellitus Family history of hypercholesterolemia Hypertension Father Family history of hypercholesterolemia Hypertension Family history of pancreatic cancer Heart disease Grandparent Family history of malignant neoplasm of uterus Sibling Family history of malignant neoplasm of breast in first degree relative Social History Social History Smoking status: Never smoker Second hand tobacco smoke exposure: No Alcohol intake: never Drinks per week: 1 Alcohol use details: STATES MAYBE 1 DINK A MONTH Substance use: never Substance use type: does not use Lack of Transportation: No Lack of Food: Never True Current Housing: I Have Housing Concerned About Future Housing: No Difficulty Paying Gas/Electric Bills: No Difficulty Paying for Meds: No Currently Unemployed: No Education: High School Diploma/GED Difficulty w/ Childcare or Family Care: No Living arrangements: with family Additional living arrangements comments: Occupation/Education: occupation Additional occupation/education comments: Self Employed Spiritual care concerns: No Comments At time of signature, I have reviewed and agree with nursing past medical, surgical, social and family history unless otherwise noted. Please see nursing chart for further information. There is no relevant family histor
== END 2024-01-28 10:47 | disposition home or self-care (01) ==
PROVIDERS: Emergency Provider Nurse Practitioner; PCP Physician Assistant
DX: J02.0 Streptococcal pharyngitis (principal); E11.9 Type 2 diabetes mellitus without complications; E78.5 Hyperlipidemia, unspecified; I10 Essential (primary) hypertension; Z79.899 Other long term (current) drug therapy
CPT/HCPCS: 87880; 99213; G0463

== ENCOUNTER 2024-02-13 15:46 | Outpatient (CLI) | payer OTHER, SELFPAY ==
--- NOTE | ~2024-02-13 | XR_ITS ---
EXAMINATION: XR chest 2V 02/13/2024 16:07 INDICATION: Generalized hyperhidrosis. PROCEDURE: 2 view chest COMPARISON: No prior studies for comparison. FINDINGS: The lungs are clear. The cardiomediastinal silhouette is within normal limits. There are no pleural effusions. There is no pneumothorax suspected. IMPRESSION: 1: NO ACUTE CARDIOPULMONARY DISEASE. Reviewed, dictated and finalized at location A.
== END 2024-02-13 15:47 ==
PROVIDERS: PCP Physician Assistant; Visit Provider Physician Assistant
DX: R61 Generalized hyperhidrosis (principal)
CPT/HCPCS: 71046

== ENCOUNTER 2024-04-30 07:22 | Outpatient (CLI) | payer OTHER, SELFPAY ==
--- NOTE | ~2024-04-30 | MM_ITS ---
EXAMINATION: MM screening marlyn BI w leeann HISTORY: Screening TECHNIQUE: Craniocaudal and mediolateral oblique 3-D tomosynthesis images were obtained and synthetic 2-D images were generated. CAD analysis was submitted and interpreted. COMPARISON: Comparison to multiple prior studies sequentially, with oldest reviewed study dated 12/20. BREAST PARENCHYMAL COMPOSITION: Not Dense: Breast are almost entirely fatty. FINDINGS: There is no evidence of suspicious mass, calcification, or architectural distortion to sugg est malignancy in either breast. There has been no suspicious interval change. IMPRESSION: 1. No mammographic evidence of malignancy. 2. Recommend routine screening mammography in one year. BI-RADS Category 1: Negative Reviewed, dictated and finalized at location B.
== END 2024-04-30 07:23 ==
LOC: MICIMG 07:25
PROVIDERS: PCP Physician Assistant; Visit Provider Obstetrics & Gynecology
DX: Z12.31 Encounter for screening mammogram for malignant neoplasm of breast (principal)
CPT/HCPCS: 77063; 77067